=== PATIENT | female | born 1955 | race Caucasian/White ===

== ENCOUNTER 2017-09-19 06:22 | Day surgery (SDC) | payer BC, SELFPAY ==
[2017-09-19] VITALS (8 sets, daily range): BP systolic 132–163; BP diastolic 66–110; PULSE 63–92; RESP 16; TEMP 36.3–37.2; O2SAT 91–100; BMI 35.7
--- NOTE | 2017-09-19 06:00 | RAD_ITS ---
STUDY: X-RAY - ABDOMEN/PELVIS REASON FOR EXAM: Female, 62 years old. Kidney stones TECHNIQUE: 1 view COMPARISON: None. FINDINGS: There are degenerative changes of the lumbosacral spine. There is no bowel distention or free intraperitoneal air and no abnormal calcifications in the expected locations of the kidneys RAD/Abdomen Single View IMPRESSION: No abnormal calcifications in the expected locations of the kidneys. No acute findings in the abdomen Electronically Signed: Mark Vazquez, at 7:14 EDT Tel , Service support ,
[2017-09-19] MEDS: Cefazolin 2 GM in 0.9% Normal Saline 100 ML IV (08:12)
--- NOTE | 2017-09-19 09:19 | PCM.IMDPSTOP ---
Problem List (1) Renal calculus, left Status: Acute (2) Hydronephrosis, right Status: Acute (3) Urinary tract infection Status: Acute Immediate Post-Op Note Date of Procedure: 09/19/17 Primary Surgeon/Physician: Aicha Velásquez MD visual arts teacher: Aicha Velásquez Pre-Operative Diagnosis: left renal calculus, right hydronephrosis, urinary tract infection Post-Operative Diagnosis: left renal calculus, normal right collecting system, urinary tract infections Surgery/Procedure Performed:: cystoscopy, right retrograde pyelogram, left extracorporeal shockwave lithotripsy Description of Surgical Findings:: no evidence of hydronephrosis, right sided stone or abnormality of the collecting system. The left renal stone was easily visible at begining of case and was well fragmented, barely visible after 3000 shocks. No pelvic organ prolapse. Estimated Blood Loss: 1cc Specimen's removed: none Type of Anesthesia:: General Special Medications: ancef 2 grams. - Admit VTE Documentation VTE Mechan Device Prophylaxis: SCD's, Knee High GUILLERMINA Hose VTE Pharm Prophylaxis ordered?: No Reason prophylaxis not ordered:: Treatment Not Indicated
--- NOTE | 2017-09-19 09:23 | OP.PN_ITS ---
Problem List (1) Renal calculus, left Status: Acute (2) Hydronephrosis, right Status: Acute (3) Urinary tract infection Status: Acute Immediate Post-Op Note Date of Procedure: 09/19/17 Primary Surgeon/Physician: Aicha Velásquez MD skills instructor: Aicha Velásquez Pre-Operative Diagnosis: left renal calculus, right hydronephrosis, urinary tract infection Post-Operative Diagnosis: left renal calculus, normal right collecting system, urinary tract infections Surgery/Procedure Performed:: cystoscopy, right retrograde pyelogram, left extracorporeal shockwave lithotripsy Description of Surgical Findings:: no evidence of hydronephrosis, right sided stone or abnormality of the collecting system. The left renal stone was easily visible at begining of case and was well fragmented, barely visible after 3000 shocks. No pelvic organ prolapse. Estimated Blood Loss: 1cc Specimen's removed: none Type of Anesthesia:: General Special Medications: ancef 2 grams. - Admit VTE Documentation VTE Mechan Device Prophylaxis: SCD's, Knee High GUILLERMINA Hose VTE Pharm Prophylaxis ordered?: No Reason prophylaxis not ordered:: Treatment Not Indicated
--- NOTE | 2017-09-19 09:29 | PCM.DC.URO ---
Discharge Diet: No Restrictions Discharge Activity: Return to Normal Activity, May Shower Call your doctor if you observe: Fever of 101 or Higher, Inability to urinate, Inability to have a bowel movement, Shortness of breath, Uncontrolled pain Allergies/Adverse Reactions: Allergies acetaminophen [From Tylenol] Adverse Reaction (Verified 08/24/17 10:22) Other morphine Adverse Reaction (Verified 08/24/17 09:55) Other STOPPED BREATHING NSAIDS (Non-Steroidal Anti-Inflamma Adverse Reaction (Verified 08/24/17 10:22) Other Medications to take at Discharge Cephalexin [Keflex] 250 mg PO DAILY 08/24/17 Cevimeline HCl [Evoxac] 30 mg PO TID 08/24/17 Cranberry Conc/Ascorbic Acid [Cranberry 6,000 mg Softgel] 1 each PO BID 08/24/17 Cyanocobalamin [Vitamin B12] 1,000 mcg SC Q30D 08/24/17 Estrogens, Conjugated [Premarin] 0.5 gm VAGINAL MOTH 08/24/17 Flaxseed Oil 1,000 mg PO BID 08/24/17 Hydroxychloroquine Sulfate [Plaquenil] 100 mg PO QHS 08/24/17 Hydroxychloroquine Sulfate [Plaquenil] 200 mg PO DAILY 08/24/17 Saccharomyces Boulardii [Probiotic] 500 mg PO DAILY 08/24/17 Turmeric Root Extract [Turmeric] 500 mg PO BID 08/24/17 Ursodiol [José Manuel] 3 tab PO BID 08/24/17 Cephalexin [Keflex] 500 mg PO Q12 3 Days #6 cap 09/19/17 The following prescriptions were given: Cephalexin [Keflex] 500 mg PO Q12 3 Days #6 cap Orders to be completed after discharge: Abdomen Single View [RAD] Location: None Selected Primary Care Physician: Liliane Desai [Primary Care Provider] - Test Results: Test results from this visit will be discussed in further detail at your follow-up appointment, if applicable. Please Follow Up With: Aicha Velásquez MD - in 3-4 weeks with moy KAPOOR
--- NOTE | 2017-09-19 09:31 | PCM.OPRPT ---
Problem List (1) Renal calculus, left Status: Acute (2) Hydronephrosis, right Status: Resolved (3) Urinary tract infection Status: Inactive Report of Operation Date of Procedure: 09/19/17 Pre-Operative Diagnosis: left renal calculus, right hydronephrosis, urinary tract infection Post-Operative Diagnosis: left renal calculus, normal right collecting system, urinary tract infections Surgery/Procedure Performed:: cystoscopy, right retrograde pyelogram, left extracorporeal shockwave lithotripsy Description of Surgical Findings:: no evidence of hydronephrosis, right sided stone or abnormality of the collecting system. The left renal stone was easily visible at begining of case and was well fragmented, barely visible after 3000 shocks. No pelvic organ prolapse. pre owned sales consultant: Aicha Velásquez Type of Anesthesia:: General Special Medications: ancef 2 grams. Specimen's removed: none Estimated Blood Loss (mL): 1cc Description of Procedure: The patient is a 62 yo female with left renal stone, recurrent UTI's and right proximal ureteral dilation on CT scan. After discussing all of the risks, benefits and alternatives in the office, she has agreed to proceed with surgical intervention. She was taken to the operating room and placed on the operating room table. Anesthesia monitered her head, neck, airway, IV and vital signs throughout the case. Once anesthesia was appropriately administered, she was placed in dorsal lithotomy position and prepped and draped in usual sterile fashion. Pelvic exam showed no evidence of pelvic organ prolapse. Cystoscopy was performed revealing no bladder or urethral abnormalities inlcuding mass, erythema, ulcer, foreign body or anatomic variant. The right ureteral orifice was intubated with an 8Fr cone tipped catheter and a retrograde pyelogram was performed showing no filling defect, dilation, or other concern for the entire collecting system. The bladder was emptied and she was placed in supine position. The left renal stone was clearly seen and was treated with a total of 3000 shocks. The stone was well fragmented. She tolerated the procedure well, and there were no complications. She was taken to the PACU in good condition. - Complications none - Admit VTE Documentation VTE Mechan Device Prophylaxis: SCD's
== END 2017-09-19 12:11 | disposition home or self-care (01) ==
LOC: SDC 06:24 → AC 06:25
PROVIDERS: Family Provider Internal Medicine; PCP Internal Medicine; Visit Provider Urology
PROC: (CPT 52353; principal; 2017-09-19 07:50)
PROC: (CPT 50590; 2017-09-19 07:50)
DX: N20.0 Calculus of kidney (principal); E66.9 Obesity, unspecified; Z78.0 Asymptomatic menopausal state; Z98.84 Bariatric surgery status; Z87.440 Personal history of urinary (tract) infections; Z87.891 Personal history of nicotine dependence
CPT/HCPCS: 50590; 74018; J7120; J2405; J3420

== ENCOUNTER → 2017-10-10 09:47 | Outpatient (CLI) | payer BC, SELFPAY | PROVIDERS: Family Provider Internal Medicine; PCP Internal Medicine; Visit Provider Urology | DX: N20.0 Calculus of kidney (principal) | CPT/HCPCS: 74018 ==

== ENCOUNTER → 2018-09-25 10:40 | Outpatient (CLI) | payer BC, SELFPAY ==
--- NOTE | 2018-09-25 10:47 | RAD_ITS ---
STUDY: X-RAY - ABDOMEN/PELVIS REASON FOR EXAM: Female, 63 years old. Follow-up kidney stones. TECHNIQUE: 2 frontal images of the abdomen were obtained. COMPARISON: None. FINDINGS: Normal visualized lung bases. There are surgical sutures within the region of the proximal stomach. There is an unremarkable bowel gas pattern. There is no demonstrated free abdominal air. Bowel gas may partially obscure anatomic detail of the kidneys. Normal soft tissue structures. There are diffuse degenerative changes of the visualized lumbar spine. RAD/Abdomen Single View IMPRESSION: No renal calculi identified. Electronically Signed: Tamika English MD at 17:14 EDT Tel , Service support ,
== END ==
PROVIDERS: Family Provider Internal Medicine; PCP Internal Medicine; Referring Provider Urology; Visit Provider Urology
DX: N20.0 Calculus of kidney (principal)
CPT/HCPCS: 74018

== ENCOUNTER 2021-08-28 16:49 | Observation (INO) | payer BC, SELFPAY ==
[2021-08-28 15:10] VITALS: BP 145/66; PULSE 79; RESP 18; TEMP 37.6; O2SAT 97
[2021-08-28 15:12] VITALS: BMI 38.2
[2021-08-28] MEDS: Dextrose 5%-Lactated Ringers 1,000 ML 125 ML IV (17:03)
[2021-08-28] MEDS: 0.9% Saline Lock 10 ML Syringe IV (17:03)
[2021-08-28 20:10] VITALS: BP 121/53; PULSE 95; RESP 18; TEMP 37.1; O2SAT 98
--- NOTE | 2021-08-28 20:32 | HP.PCM_ITS ---
HPI - General General Date of Admission: 08/28/21 Date of Service: 08/28/21 Chief Complaint: left flank pain, left ureteral stone HPI Narrative BARB HSU, is a 66 F who presented to an outlying emergency room earlier today for uncontrolled left flank pain with nausea and vomiting. She has a history of stones and developed pain initially evening. She is a patient of mine and was transferred here for further management. [facility] Medical History (Updated 08/28/21 @ 20:[address] Aicha Velásquez MD) Former smoker Hiatal hernia Hydronephrosis Kidney stones Left ureteral stone Primary biliary cirrhosis Right bundle branch block Sarcoidosis Home Medications Saccharomyces boulardii 250 mg capsule (Probiotic (S.boulardii)) 500 mg PO DAILY SUPPLEMENT 08/24/17 [History Last Taken Unknown] cranberry concentrate-ascorbic acid 6,000 mg-100 mg capsule 1 ea PO BID SUPPLEMENT 08/24/17 [History Last Taken Unknown] cyanocobalamin (vitamin B-12) 1,000 mcg/mL injection solution 1,000 mcg subcut Q30D VITAMIN 08/24/17 [History Last Taken Unknown] flaxseed oil 1,000 mg capsule 1,000 mg PO DAILY SUPPLEMENT 08/24/17 [History Las t Taken Unknown] hydroxychloroquine 200 mg tablet (Plaquenil) 200 mg PO DAILY 08/24/17 [History Last Taken Unknown] hydroxychloroquine 200 mg tablet (Plaquenil) 400 mg PO .QODAYBID SJOGRENS 08/24/17 [History Last Taken 08/26/21] turmeric root extract 500 mg capsule 500 mg PO DAILY SUPPLEMENT 08/24/17 [History Last Taken Unknown] ursodiol 250 mg tablet 3 tab PO BID LIVER 08/24/17 [History Last Taken 08/27/21] alprazolam 1 mg tablet (Xanax) 1 mg PO Q8H PRN claustophobia 08/28/21 [History Last Taken Unknown] cevimeline 30 mg capsule (Evoxac) 1 cap PO TID dry mouth 08/28/21 [History Last Taken Unknown] diphenhydramine HCl 50 mg capsule (Unisom SleepGels) 50 mg PO QHS PRN Sleep 08/28/21 [History Last Taken Unknown] melatonin 10 mg tablet 10 mg PO QHS 08/28/21 [History Last Taken Unknown] tramadol 50 mg tablet 50 mg PO BID PRN PRN Pain 08/28/21 [History Last Taken Unknown] valacyclovir 1 gram tablet 1 tab PO BID PRN PRN herpes flare 08/28/21 [History Last Taken Unknown] vitamins A,C,Y-daxm-vfemlx 14,320 unit-226 mg-200 unit capsule (PreserVision AREDS) 1 cap PO DAILY 08/28/21 [History Last Taken Unknown] Allergy/AdvReac Type Severity Reaction Status Date / Time acetaminophen [From Tylenol] AdvReac shouldn't Verified 08/28/21 15:15 take due to primary biliary disease morphine AdvReac stopped Verified 08/28/21 15:15 breathing when i had it after surgery NSAIDS (Non-Steroidal AdvReac shouldn't Verified 08/28/21 15:15 Anti-Inflamma take post bariatric surgery Surgical History H/O bariatric surgery Social History Smoking Status: Former smoker ROS Constitutional Constitutional: Reports fatigue and poor appetite Eyes Eyes: Reports systems reviewed and no addt'l complaints, except as documented ENT HEENT: Reports systems reviewed and no addt'l complaints, except as documented Cardiovascular Cardiovascular: Reports abdominal pain, fatigue and vomiting; Denies chest pain or dyspnea Respiratory/Chest Respiratory/Chest: Denies change in mental status, chest tightness or cough Gastrointestinal Gastrointestinal: Reports abdominal pain, nausea and vomiting Genitourinary Genitourinary: Reports abdominal discomfort, low back pain, urinary frequency and urinary urgency; Denies dysuria or hematuria Musculoskeletal Musculoskeletal: Reports back pain Integumentary Integumentary: Reports systems reviewed and no addt'l complaints, except as documented Neurologic Neurologic: Reports systems reviewed and no addt'l complaints, except as documented Psychiatric Psychiatric: Reports systems reviewed and no addt'l complaints, except as documented Allergic/Immunologic Allergic/Immunologic: Reports systems reviewed and no addt'l complaints, except as documented Vital Signs Vital Signs Vital Signs: 08/28/21 15:10 Temperature 99.6 F H Temperature Source Oral Pulse Rate 79 Respiratory Rate 18 Blood Pressure 145/66 H Blood Pressure Mean 92 Blood Pressure Source Monitor Blood Pressure Position Semi-Fowlers Blood Pressure Location Right Arm Pulse Ox 97 Oxygen Delivery Method Room Air Weight Weight: 96.4 kg Body Mass Index (BMI) 38.2 Physical Exam Const alert, oriented x3 and no apparent distress General Appearance: cooperative and comfortable Orientation / Consciousness: awake and oriented to person Exam Limitations: no limitations HEENT normocephalic, head/scalp atraumatic, external ears normal and external nose normal Eyes General Eye: normal appearance of both eyes Neck supple General: trachea midline Lymph Lymphatic: no lymphedema noted Chest inspection of chest normal Chest: symmetrical chest wall rise Resp normal respiratory effort, normal air movement, no retractions and no use of accessory muscles Cardio regular rate and regular rhythm GI normal to inspection, nondistended, normoactive bowel sounds, soft to palpation and non-distended Bladder / Kidney Exam: CVA tenderness left Back/Spine General Back: CVA tenderness left Extremity normal to inspection Skin no rashes or lesions noted, no wounds, skin turgor normal, no jaundice, no petechiae and no mottling Neuro oriented x3, CN's II-XII intact bilaterally and moves all extremities Psych mental status grossly normal, thought process normal, cooperative and affect normal Assessment & Plan Assessment/Plan (1) Left ureteral stone: (2) Hydronephrosis: (3) Urinary tract infection: PLAN: Plan NPO after midnight, if no stone passes overnight, plan for cystoscopy and stent insertion tomorrow antibiotics, fluids, supportive care KUB today and strain all urine
--- NOTE | 2021-08-28 20:50 | RAD_ITS ---
STUDY: X-RAY - ABDOMEN/PELVIS REASON FOR EXAM: Female, 66 years old. ureteral stone TECHNIQUE: Single AP view of the abdomen / pelvis. COMPARISON: None. FINDINGS: Normal visualized lung bases. No dilated loops of small bowel. Fecal residue in the colon. There is no demonstrated free abdominal air. Surgical sutures of the medial left upper abdomen. The visualized liver, spleen and kidneys are grossly normal in size and morphology. Normal soft tissue structures. There are diffuse degenerative changes of the visualized lumbar spine and hips. RAD/Abdomen Single View IMPRESSION: Nonobstructive bowel gas pattern. Electronically Signed: Reed Aquino MD ([place]) at 21:02 EDT ,
[2021-08-28] MEDS: Cefazolin 1 GM/50 ML BAG IV (22:02)
[2021-08-28] MEDS: Docusate Sodium 100 MG Capsule PO (22:04)
[2021-08-28] MEDS: MELATONIN 10 MG TABLET PO (22:04)
[2021-08-28] MEDS: oxyCODONE 5 MG Tablet 10 MG PO (22:49)
[2021-08-29] VITALS (7 sets, daily range): BP systolic 103–125; BP diastolic 54–68; PULSE 52–83; RESP 15–16; TEMP 36.6–37.2; O2SAT 94–97; BMI 38.2
[2021-08-29] MEDS: Dextrose 5%-Lactated Ringers 1,000 ML 125 ML IV (03:35)
--- NOTE | 2021-08-29 06:00 | EKG12_ITS ---
Test Reason : PRE-OP Blood Pressure : / mmHG Vent. Rate : 068 BPM Atrial Rate : 068 BPM P-R Int : 134 ms QRS Dur : 130 ms QT Int : 420 ms P-R-T Axes : 075 -05 022 degrees QTc Int : 446 ms Sinus rhythm with Premature atrial complexes Right bundle branch block Abnormal ECG No previous ECGs available Confirmed by JUAN CARLOS ADAMES, MAYRA ([id number]), brands editor MAURA FERRARO ([id number]) on 08/30/2021 9:12:00 AM Referred By: SILVIO Confirmed By:MAYRA RANGEL MD
[2021-08-29 06:18] LABS: Absolute Lymphocyte Count 0.62 X10^3/uL (0.83-4.51); Absolute Neutrophil Count 3.1 X10^3/uL (2.0-7.7); Basophil# 0.01 X10^3/uL; Basophil% 0.2 % (0-1); Eosinophil# 0.01 X10^3/uL; Eosinophils% 0.2 % (0-5); Hemoglobin 11.1 g/dL (12.0-15.0); Lymphocyte # 0.62 X10^3/ul (0.83-4.51); Lymphocyte % 14.2 % (19-41); Mean Corp Hgb Conc 32.6 g/dL (32-36); Mean Corpuscular Hgb 30.7 pg (27.0-32.0); Mean Corpuscular Volume 94.2 fL (81-99); Mean Platelet Vol. 10.8 fl (6.2-12.0); Monocyte% 13.7 % (0-10); NRBC Flagged by Analyzer 0 % (0-5); Neutrophil # 3.11 X10^3/uL (2.7-7.7); Neutrophil % 71.2 % (47-70); POSITIVE COUNT YES; Platelet Count 91 K/mm3 (150-450); RBC Distribution Width SD 45.1 fl (35.1-43.9); Red Blood Count 3.61 M/mm3 (4.2-5.4); White Blood Count 4.4 K/mm3 (4.4-11.0)
[2021-08-29] MEDS: Cefazolin 1 GM/50 ML BAG IV ×2 (06:22→13:58)
[2021-08-29 06:24] LABS: Anion Gap 4 (5-15); BUN 11 mg/dL (7-18); BUN/Creat Ratio 15.3 RATIO (10-20); Calcium,Total 8.2 mg/dL (8.5-10.1); Chloride 106 mmol/L (98-107); Creatinine, Serum 0.72 mg/dL (0.55-1.02); EST Glomerular Filtration Rate 86 mL/min (>60); Est Glom Filt Rate - Afr Amer 104 mL/min (>60); Estimated Creatinine Clearance 43.77 ml/min; Glucose 126 mg/dL (74-106); Potassium 3.3 mmol/L (3.5-5.1); Sodium Level 139 mmol/L (136-145)
[2021-08-29 06:58] LABS: Differential Indicated SCAN CRITERIA MET
[2021-08-29] MEDS: Lactated Ringers 1,000 ML 15 ML IV (11:25)
--- NOTE | 2021-08-29 12:29 | OP.PCM_ITS ---
Problems Associated Problem List Diagnoses (1) Left ureteral stone: Report of Operation Date of Procedure: 08/29/21 Pre-Operative Diagnosis: left ureteral calculus, urinary tract infection Post-Operative Diagnosis: same Surgery/Procedure Performed:: cystoscopy, left retrograde pyelogram, left ureteral stent insertion Surgeon: Aicha Velásquez Type of Anesthesia: MAC Specimen's removed: None Description of Procedure: The patient is a 66-year-old female who was admitted with a left distal ureteral calculus with infection and now presents for left ureteral stent insertion. Informed consent was obtained. The patient was taken to the operating room and placed on the operating room table. Anesthesia monitored the head, neck, airway, IV access and vital signs throughout the case. Once anesthesia was apparently administered, the patient was placed into dorsolithotomy position was prepped and draped in usual sterile fashion. The cystoscope was inserted through the urethra under direct visualization into the urinary bladder. The bladder was mildly irritated in appearance without evidence of mass. The left ureteral orifice was gently cannulated with an 8 Indonesian cone-tip catheter and 3 to 4 cc of contrast was injected gently in retrograde fashion. This eliminated an obstructing stone. The retrograde pyelogram was immediately aborted. A 0.035 Glidewire was then inserted through the urethra into the left renal pelvis as seen on fluoroscopy. A 6 Indonesian 24 cm JJ stent was passed over the wire with good curling in the renal pelvis as well as the urinary bladder. The patient's bladder was then emptied and the case was terminated. She was awakened and taken to the recovery room in good condition. There were no complications during this procedure. Grafts/Implants Used: 6x24 JJ stent Complications none Admit VTE Documentation VTE Present on Admission: Yes VTE Mechan Device Prophylaxis: SCD's VTE Pharm Prophylaxis ordered?: No Reason prophylaxis not ordered:: Treatment Not Indicated
--- NOTE | 2021-08-29 12:31 | DCINST_ITS ---
Discharge Instructions Diet Discharge Diet: No restrictions Activity Discharge Activity: Return to Normal Activity and May Drive (after 24 hours and not taking narcotics) Dressing / Incision Call your doctor if you observe: Fever of 101 or Higher, Inability to urinate and Inability to have a bowel movement Follow Up Care Please Follow Up With: Aicha Velásquez MD When: call office for instructions Test Results: Test results from this visit will be discussed in further detail at your follow- up appointment, if applicable. Discharge Plan Admission Admit Date/Time: 08/28/21 16:49 Attending Provider: Aicha Velásquez Primary Care Provider: Liliane Desai Discharge Orders/Prescriptions Prescriptions: New ondansetron HCl [ondansetron HCl] 8 mg tablet 8 mg PO Q8H PRN PRN (Reason: Nausea) 7 Days Qty: 20 0RF oxycodone-acetaminophen [Percocet] 5-325 mg tablet 1 tab PO Q8H PRN (Reason: pain) 3 Days Qty: 10 0RF cephalexin [cephalexin] 500 mg capsule 500 mg PO Q12 3 Days Qty: 6 0RF Continued flaxseed oil 1,000 MG capsule 1,000 mg PO DAILY cyanocobalamin (vitamin B-12) 1,000 MCG/ML solution 1,000 mcg subcut Q30D Label Comments: USURE OF DOSAGE ursodiol 250 MG tablet 3 tab PO BID hydroxychloroquine [Plaquenil] 200 MG tablet 400 mg PO .QODAYBID hydroxychloroquine [Plaquenil] 200 MG tablet 200 mg PO DAILY Saccharomyces boulardii [Probiotic (S.boulardii)] 250 MG capsule 500 mg PO DAILY cranberry conc-ascorbic acid 1 EACH capsule 1 ea PO BID turmeric root extract 500 MG capsule 500 mg PO DAILY diphenhydramine HCl [Unisom SleepGels] 50 mg Capsule 50 mg PO QHS PRN (Reason: Sleep) alprazolam [Xanax] 1 mg Tablet 1 mg PO Q8H PRN (Reason: claustophobia) valacyclovir 1 gram tablet 1 tab PO BID PRN PRN (Reason: herpes flare) Label Comments: TAKE 1 TABLET TWICE A DAY tramadol 50 mg tablet 50 mg PO BID PRN PRN (Reason: Pain) Label Comments: TAKE 1 TABLET BY MOUTH TWICE A DAY NEEDED cevimeline [Evoxac] 30 mg Capsule 1 cap PO TID PreserVision AREDS [id number],320-226-200 [id number] Capsule 1 cap PO DAILY melatonin 10 mg Tablet 10 mg PO QHS Referrals / Follow Up: Liliane Desai MD [Primary Care Provider] - Disposition Disposition (needs filled in before D/C Order can be placed): Home, Self Care
[2021-08-29] MEDS: Hydroxychloroquine 200 MG Tablet PO (13:50)
[2021-08-29] MEDS: CEVIMELINE HCL 30 MG CAPSULE PO (13:51)
[2021-08-29] MEDS: Ursodiol 250 MG Tablet 750 MG PO (13:53)
== END 2021-08-29 16:55 | disposition home or self-care (01) ==
PROVIDERS: Admitting Provider Urology; PCP Internal Medicine; Visit Provider Urology
PROC: (CPT 52332; principal; 2021-08-29 11:50)
DX: N13.6 Pyonephrosis (principal); K74.3 Primary biliary cirrhosis; Z87.891 Personal history of nicotine dependence; Z79.899 Other long term (current) drug therapy; Z98.84 Bariatric surgery status; K44.9 Diaphragmatic hernia without obstruction or gangrene; I45.10 Unspecified right bundle-branch block; D86.9 Sarcoidosis, unspecified
CPT/HCPCS: 52332; 00910; 36415; 74018; 76000; 80048; 85025; 93005; 96361; 96365; 96366; 99218; J7120; A4216; C2617; G0378; J2405

== ENCOUNTER → 2021-10-03 | Outpatient (CLI) | payer BC, SELFPAY ==
--- NOTE | 2021-10-03 14:59 | CT_ITS ---
EXAM: CT ABDOMEN AND PELVIS WITHOUT INTRAVENOUS CONTRAST CLINICAL INDICATION: LEFT URETRAL STONE TECHNIQUE: Helically acquired images were obtained of the abdomen and pelvis without intravenous contrast. This CT exam was performed using one or more of the following dose reduction techniques: automated exposure control, adjustment of the mA and/or kV according to patient size, and/or use of iterative reconstruction technique. This report was created using [employer] report generation technology. COMPARISON: None. FINDINGS: LOWER THORAX: Normal. Lung bases are clear. No cardiomegaly. No pericardial effusion. ABDOMEN: LIVER: Normal. Homogeneous. GALLBLADDER AND BILE DUCTS: Multiple small calcified stones are present within the gallbladder. No gallbladder distention or wall edema. No intra- or extrahepatic biliary ductal dilation. PANCREAS: Normal. No focal cystic mass. SPLEEN: Normal. Normal size without focal cystic or solid mass. ADRENALS: Normal. No nodules. KIDNEYS AND URETERS: Small stones are present within the lower pole of the left kidney. Double-J ureteral stent catheter in place on the left. No obstructive changes of the renal collecting system. 2.6 cm right renal cyst is noted. No specific follow-up is indicated. STOMACH AND BOWEL: Surgical changes of Jerry-en-Y gastric bypass. PELVIS: APPENDIX: No evidence of acute appendicitis. BLADDER: Normal. REPRODUCTIVE: Uterus is retroflexed. ABDOMEN and PELVIS: INTRAPERITONEAL SPACE: Normal. No ascites or other fluid collection. No free air. BONES/JOINTS: Bilateral L5 spondylolysis noted with grade 1 spondylolisthesis. Disc degeneration noted at the L3-4 and L5-S1. No suspicious lytic or blastic abnormality. SOFT TISSUES: Normal. No discrete abdominal or pelvic wall hernia. VASCULATURE: Normal. Abdominal aorta is non-dilated. LYMPH NODES: Normal. No enlarged lymph nodes. CT/Abdomen/Pelvis without Cont IMPRESSION: 1. Left nephrolithiasis. 2. Cholelithiasis. Electronically Signed: Garry Pacheco MD at 15:46 EDT ,
== END | disposition home or self-care (01) ==
LOC: CT 14:37
PROVIDERS: PCP Internal Medicine; Visit Provider Urology
DX: N20.1 Calculus of ureter (principal)
CPT/HCPCS: 74176